=== PATIENT | male | born 1990 | race African-American/Black ===

== ENCOUNTER 2018-01-07 11:26 | Emergency (ER) | payer MEDICAID ==
[~2018-01-07] VITALS: Ht 185.4 cm; Wt 70.3 kg
[2018-01-07] MEDS ORDERED: IBUPROFEN 800 MG TABLET ONE (12:11)
[2018-01-07] MEDS ORDERED: IBUPROFEN 800 MG TABLET PO ONE (12:15)
--- NOTE | 2018-01-07 12:31 | NUR ---
Patient discharged to home in stable conditon. Written and verbal after care instructions given. Patient verbalizes understanding of instructions.
[2018-01-07 12:40] VITALS: BP 103/47
== END 2018-01-07 12:41 | disposition home or self-care (01) ==
LOC: ER 11:30
DX: S13.4XXA Sprain of ligaments of cervical spine, initial encounter (principal); V49.9XXA Car occupant (driver) (passenger) injured in unspecified traffic accident, initial encounter; Y93.89 Activity, other specified; Y92.410 Unspecified street and highway as the place of occurrence of the external cause; Y99.8 Other external cause status
CPT/HCPCS: A4663